=== PATIENT | female | born 1955 | race Caucasian/White ===

== ENCOUNTER → 2021-05-24 13:37 | Outpatient (CLI) | payer MEDICARE, OTHER, SELFPAY ==
--- NOTE | 2021-05-24 | DI.MRI.S_ITS ---
PROCEDURE: MR KNEE RT WO CON INDICATIONS: Unilateral primary osteoarthritis, right knee TECHNIQUE: Noncontrast sagittal PD fast spin echo and T2 fast spin echo with fat saturation, sagittal 3-D FLASH with fat saturation; coronal T1 spin echo and PD fast spin echo with fat saturation, and axial PD fast spin echo with fat saturation through the knee. COMPARISON: [facility], CR, XR KNEE 3 VIEWS RIGHT, 11/29/2020, 10:00. FINDINGS: Image quality: Excellent. Menisci: There is peripheral displacement of medial meniscus bowing medial collateral ligament. Complex oblique tear involving body and posterior horn of medial meniscus is seen extending to both superior and inferior articulating surfaces. There is suggestion of oblique tear involving anterior horn of lateral meniscus extending to superior and inferior articulating surfaces. The meniscal root ligaments appear intact. Cruciate ligaments: The anterior and posterior cruciate ligaments appear intact. Medial structures: Low-grade MCL sprain is seen. The posterior oblique ligament, semimembranosus tendon insertions, oblique popliteal ligament, and meniscocapsular junction appear intact. Visualized portions of the pes anserinus tendons appear normal. No abnormal bursal fluid. Lateral structures: The lateral collateral ligament, long and short heads of the biceps femoris tendon appear intact. The popliteus tendon appears normal; the popliteofibular ligament appears intact. The posterosuperior and anteroinferior popliteomeniscal fascicles appear intact. The arcuate and fabellofibular ligaments appear intact, on either side of the lateral inferior geniculate artery. Iliotibial band appears normal. Anterior structures: The quadriceps and patellar tendons appear intact. Patellar alignment is normal. No femoral trochlear dysplasia or ventral trochlear prominence. No edema in the infrapatellar fat pad. Bones and cartilage: No bone marrow contusions or fractures. Moderate to severe medial femoral tibial compartment osteoarthritis and chondromalacia is noted. Mild to moderate chondromalacia and osteoarthritis in patellofemoral compartment and lateral femoral tibial compartment is also seen. Joint space: There is small amount of joint fluid, no gross intra-articular loose bodies. No Castro's cyst. Normal appearing synovial plicae are incidentally noted. IMPRESSION: 1. Moderate to severe medial femoral tibial compartment osteoarthritis and chondromalacia. Mild to moderate osteoarthritis and chondromalacia in lateral femoral tibial compartment and patellofemoral compartment. No fracture or dislocation. Small joint effusion. 2. Complex tear involving body and posterior horn of medial meniscus extending to both superior and inferior articulating surfaces. Focal complex tear involving anterior horn of lateral meniscus extending to both superior and inferior articulating surfaces. 3. Cruciate ligaments are intact. Low-grade MCL sprain. Dictated by: Ethan Chapman M.D. on 05/24/2021 at 15:33 Approved by: Ethan Chapman M.D. on 05/24/2021 at 15:44
== END ==
PROVIDERS: PCP Internal Medicine; Referring Provider Orthopaedic Surgery; Visit Provider Orthopaedic Surgery
DX: S83.231A Complex tear of medial meniscus, current injury, right knee, initial encounter (principal); S83.271A Complex tear of lateral meniscus, current injury, right knee, initial encounter; S83.411A Sprain of medial collateral ligament of right knee, initial encounter; M17.11 Unilateral primary osteoarthritis, right knee; M22.41 Chondromalacia patellae, right knee
CPT/HCPCS: 73721

== ENCOUNTER → 2021-06-12 11:08 | Outpatient (CLI) | payer MEDICARE, OTHER, SELFPAY ==
[2021-06-12 12:39] LABS: Appearance Urine UA CLEAR; Bilirubin Urine UA NEGATIVE (NEGATIVE); Color Urine UA YELLOW; Glucose Urine UA NEGATIVE (Negative); Ketones Urine UA NEGATIVE (NEGATIVE); Leukocyte Esterase Urine UA TRACE (NEGATIVE); Nitrite Urine UA NEGATIVE (Negative); Occult Blood Urine UA NEGATIVE (Negative); Protein Urine UA NEGATIVE (Negative); Urobilinogen Urine UA 0.2 E.U./dL (0.2)
[2021-06-12 12:53] LABS: Bacteria Urine None Seen; Culture Indicated Urine Cult Not Indicated; RBC Urine None Seen (0-5/HPF); WBC Urine None Seen (0-5/HPF)
[2021-06-12 12:58] LABS: Add Manual Diff / Slide Review NO; Basophils Absolute Auto 0 /uL (0-100); Basophils Percent Auto 0.5 % (0-2); Eosinophils Absolute Auto 100 /uL (0-450); Eosinophils Percent Auto 1.5 % (2-4); Hematocrit 37.7 % (36-46); Hemoglobin 12.8 g/dL (12.0-16.0); Lymphocytes Absolute Auto 1900 /uL (1100-4500); Lymphocytes Percent Auto 34.9 % (25-40); Mean Corpuscular Hemoglobin 30.9 PG (26-34); Monocytes Absolute Auto 300 /uL (0-900); Monocytes Percent Auto 6.2 % (3-14); Neutrophils Absolute Auto 3100 /uL (1500-7000); Neutrophils Percent Auto 56.9 % (50-75); Platelet Count 256 X10^3/uL (150-400); Red Blood Cell Count 4.14 X10^6/uL (4.0-5.2); Red Cell Distribution Width 13.1 % (11.6-14.8); White Blood Cell Count 5.4 X10^3/uL (4.5-11.0)
[2021-06-12 13:00] LABS: Hemoglobin A1C% w Est Avg Glu 4.9 % (4.0-6.0)
[2021-06-12 13:14] LABS: BUN Creatinine Ratio 29.8 (6-22); Blood Urea Nitrogen 17 mg/dL (7-17); Calcium 9.6 mg/dL (8.4-10.2); Carbon Dioxide 30 mmol/L (22-32); Chloride 103 mmol/L (98-107); Estimated Glomerular Filt Rate > 60.0 mL/min (>60); Glucose 83 mg/dL (80-110); HEMOLYSIS < 15 (0-50); Potassium 4.7 mmol/L (3.4-5.1); Sodium 138 mmol/L (137-145)
== END ==
PROVIDERS: PCP Internal Medicine; Referring Provider Orthopaedic Surgery; Visit Provider Orthopaedic Surgery
DX: Z01.818 Encounter for other preprocedural examination (principal); N39.0 Urinary tract infection, site not specified; R73.9 Hyperglycemia, unspecified; Z01.812 Encounter for preprocedural laboratory examination
CPT/HCPCS: 36415; 80048; 81001; 83036; 85025; 93005

== ENCOUNTER → 2022-05-19 10:38 | Outpatient (CLI) | payer MEDICARE, OTHER, SELFPAY ==
--- NOTE | 2022-05-19 | DI.MRI.S_ITS ---
PROCEDURE: MR KNEE LT WO CON INDICATIONS: Unspecified internal derangement of left knee TECHNIQUE: Noncontrast sagittal PD fast spin echo and T2 fast spin echo with fat saturation, sagittal 3-D FLASH with fat saturation; coronal T1 spin echo and PD fast spin echo with fat saturation, and axial PD fast spin echo with fat saturation through the knee. COMPARISON: [facility], MR, MR KNEE RT WO CON, 05/24/2021, 14:07. FINDINGS: Image quality: Excellent. Menisci: There is some truncation and fraying involving the free edge of the body of the patient's medial meniscus. Lateral meniscus appears within normal limits. Cruciate ligaments: The anterior and posterior cruciate ligaments appear intact. Medial structures: The medial collateral ligament appears intact. The posterior oblique ligament, semimembranosus tendon insertions, oblique popliteal ligament, and meniscocapsular junction appear intact. Visualized portions of the pes anserinus tendons appear normal. No abnormal bursal fluid. Lateral structures: The lateral collateral ligament, long and short heads of the biceps femoris tendon appear intact. The popliteus tendon appears normal; the popliteofibular ligament appears intact. The posterosuperior and anteroinferior popliteomeniscal fascicles appear intact. The arcuate and fabellofibular ligaments appear intact, on either side of the lateral inferior geniculate artery. Iliotibial band appears normal. Anterior structures: The quadriceps and patellar tendons appear intact. Patellar alignment is normal. No femoral trochlear dysplasia or ventral trochlear prominence. No edema in the infrapatellar fat pad. Bones and cartilage: There is moderate to severe chondromalacia involving the patellofemoral joint and some mild chondromalacia involving the articular surface of the medial compartment. Remainder of the articular cartilage appears intact. Joint space: There is a small knee joint effusion present. No significant Castro cyst is identified. IMPRESSION: 1. Truncation and fraying along the free edge of the body of the patient's medial meniscus. 2. Moderate to severe chondromalacia patellofemoral joint. 3. Mild chondromalacia articular surface of the medial compartment. 4. Small knee joint effusion. Dictated by: Cruz Palacios M.D. on 05/19/2022 at 11:35 Approved by: Cruz Palacios M.D. on 05/19/2022 at 11:40
== END ==
PROVIDERS: PCP Internal Medicine; Referring Provider Orthopaedic Surgery Foot and Ankle Surgery; Visit Provider Orthopaedic Surgery Foot and Ankle Surgery
DX: M23.92 Unspecified internal derangement of left knee (principal); M22.42 Chondromalacia patellae, left knee; M25.462 Effusion, left knee
CPT/HCPCS: 73721

== ENCOUNTER → 2024-09-09 13:49 | Outpatient (CLI) | payer MEDICARE, OTHER, SELFPAY ==
--- NOTE | 2024-09-09 13:52 | DI.ECHO.S_ITS ---
[facility] : : [id number] : [place] : : [id number] : : Phone: [phone] Echocardiogram Report + + :Name: DONNELL GERMAN Study Date: 09/09/2024 Height: 62 in : :Hospital ReadingLocation: Weight: 225 lb : : Gender: Female BSA: 2.0 m2 : :: 1955 Age: 68 yrs BP: 166/96 mmHg: :Reason For Study: PAROXYSMAL SVT : :Ordering Physician: FERMIN, : :ASIA Performed By: Marino Dempsey : :Referring: ASIA CHRISTENSEN : + + Interpretation Summary Left ventricular systolic function is normal. The ejection fraction is estimated to be 65-70%. Previous LVEF 60 to 65% The right ventricle is normal in size and function. No significant valvular pathology seen. Previously moderate MR and mild to moderate TR. Rhythm appears to be sinus with frequent PACs including nonconducted PACs as well. BP: 166/96 mmHg Procedure: A two-dimensional transthoracic echocardiogram with color flow and Doppler was performed. The study quality was technically difficult. Comparison is made with the echocardiogram of 06/12/2023. The patient was in normal sinus rhythm during the exam. The patient had frequent PACs during the exam. Left Ventricle: The left ventricle is normal in size. Left ventricular wall thickness is mildly increased. There is no thrombus. The ejection fraction is estimated to be 65-70%. Left ventricular systolic function is normal. There are no focal wall motion abnormalities. Diastolic parameters suggest a relaxation abnormality of the left ventricle, consistent with probable normal filling pressures. Right Ventricle: The right ventricle is normal in size and function. Atria: The left atrial size is normal. The left atrium has significantly decreased in size since the prior echo exam. Right atrial size is normal. There is no Doppler evidence for an interatrial shunt. Mitral Valve: There is mild mitral annular calcification. There is trace mitral regurgitation. Compared to the prior echo study, there has been an increase in the severity of mitral regurgitation. Aortic Valve: The aortic valve is trileaflet. The aortic valve is mildly calcified. The aortic valve opens well. No aortic regurgitation is present. Tricuspid Valve: The tricuspid valve is normal. There is trace tricuspid regurgitation. Right ventricular systolic pressure is estimated to be 22 mmHg plus the clinically estimated CVP which cannot be estimated on this exam. Compared to the prior echo exam, there has been a decrease in TR severity. Pulmonic Valve: The pulmonic valve leaflets are thin and pliable; valve motion is normal. There is no pulmonic valvular regurgitation. Great Vessels: The aortic root is normal size. The dimensions of the ascending aorta are normal. Artifact seen in the aortic arch. The pulmonary artery is normal size. The inferior vena cava was not visualized. Pericardium/ Pleura There is no pericardial effusion. MMode/2D Measurements & Calculations LVIDd: 5.0 cm LVOT diam: 1.9 cm LVIDs: 3.1 cm Ao root diam: 3.0 cm FS: 38.8 % asc Aorta Diam: 3.5 cm EPSS: 0.49 cm Ao Arch Diam (Prox Trans): 2.9 cm IVSd: 1.1 cm LVPWd: 1.1 cm LV jameson. diameter/BSA (cm/m^2): 2.5 LV sys. diameter/BSA (cm/m^2): 1.5 LA A2 area: 17.8 cm2 RA long axis: 4.8 cm LA A4 area: 18.5 cm2 RA area: 13.2 cm2 LA length (vol): 5.0 cm RA vol: 30.9 ml LA vol: 55.3 ml RA : 15.4 ml/m2 LA vol index: 27.5 ml/m2 RVD1 (basal): 3.6 cm RVD2 (mid): 3.1 cm TAPSE: 2.8 cm Doppler Measurements & Calculations Ao V2 max: 204.0 cm/sec LVOT Max Naeem: 108.4 cm/sec Ao V2 mean: 142.8 cm/sec LV V1 max P.7 mmHg Ao max P.7 mmHg LV V1 VTI: 25.8 cm Ao mean P.2 mmHg CHRISTY(I,D): 2.0 cm2 Ao V2 VTI: 39.1 cm CHRISTY(V,D): 1.6 cm2 sev ratio: 0.66 CHRISTY indexed to BSA (cm^2/m^2): 0.97 MV E max naeem: 51.2 cm/sec TR max naeem: 232.4 cm/sec MV A max naeem: 80.4 cm/sec TR max P.6 mmHg MV E/A: 0.64 PA V2 max: 97.2 cm/sec Med Peak E' Naeem: 6.5 cm/sec PA V2 mean: 62.0 cm/sec E/E' med: 7.9 PA mean P.8 mmHg Lat Peak E' Naeem: 6.7 cm/sec PA pr(Accel): 51.6 mmHg E/E' lat: 7.6 E/e' average: 7.8 MV dec time: 0.29 sec SV(LVOT): 76.4 ml Reading Physician:[id number] PM
== END ==
PROVIDERS: PCP Internal Medicine; Referring Provider Internal Medicine Cardiovascular Disease; Visit Provider Internal Medicine Cardiovascular Disease
DX: I47.10 Supraventricular tachycardia, unspecified (principal); I34.81 Nonrheumatic mitral (valve) annulus calcification
CPT/HCPCS: 93306